=== PATIENT | female | born 1950 | race Caucasian/White ===

== ENCOUNTER 2021-09-08 07:03 | Day surgery (SDC) | payer MEDICARE, MEDICAID ==
[2021-09-06 16:43] LABS: BASOPHILS % (AUTO) 0.7 % (0-1); EOSINOPHILS # (AUTO) 0.2 X10'3 (0-0.9); EOSINOPHILS % (AUTO) 2.8 % (0-6); LYMPHOCYTES # (AUTO) 2.2 X10'3 (1.1-4.8); MEAN CORPUSCULAR HGB CONC 32.2 g/dL (33.0-36.5); MEAN CORPUSCULAR VOLUME 80.7 FL (78-98); MEAN PLATELET VOLUME 6.6 FL (7.4-10.4); MONOCYTES # (AUTO) 0.6 X10'3 (0-0.9); MONOCYTES % (AUTO) 8.7 % (2-12); NEUTROPHILS # (AUTO) 3.4 X10'3 (1.8-7.7); NEUTROPHILS % (AUTO) 52.8 % (42-75); PRE OP HEMATOCRIT 32.2 % (35.0-45.0); PRE OP PLATELET COUNT 297 X10'3 (140-440); RED BLOOD COUNT 3.98 X10'6 (4.20-5.60); RED CELL DISTRIBUTION WIDTH 18.6 % (11.5-14.5)
[2021-09-06 16:51] LABS: PRE OP HEMOGLOBIN 10.4 g/dL (12.0-16.0)
[2021-09-06 16:55] LABS: ALBUMIN 3.9 G/DL (3.4-5.0); ALBUMIN/GLOBULIN RATIO 1.1 (1.1-1.5); ALKALINE PHOSPHATASE 135 IU/L (46-116); BLOOD UREA NITROGEN 23 MG/DL (7-18); CALCIUM 8.9 MG/DL (8.5-10.1); CHLORIDE 104 MMOL/L (99-107); CREATININE 1.44 MG/DL (0.40-0.90); PRE OP ALT 30 U/L (30-65); PRE OP ANION GAP 8 (8-16); PRE OP AST 35 U/L (10-37); PRE OP BILIRUB, TOTAL 0.4 MG/DL (0.0-1.0); PRE OP GLUCOSE 92 MG/DL (70-104); PRE OP POTASSIUM 3.9 MMOL/L (3.4-5.1); PRE OP SODIUM 142 MMOL/L (135-145); TOTAL CARBON DIOXIDE 29.8 MMOL/L (24-32); TOTAL PROTEIN 7.5 G/DL (6.4-8.2); eGFR 36 ML/MIN
[2021-09-06 18:08] LABS: ANISOCYTOSIS 2+; HYPOCHROMASIA 1+; PLATELET ESTIMATE NORMAL
[2021-09-08] VITALS (7 sets, daily range): BP systolic 128–143; BP diastolic 69–76
[~2021-09-08] VITALS: Ht 162.6 cm; Wt 55.4 kg
[~2021-09-08 07:03] MED LIST: AMLO5TAB16 PO; ASPI-1265 PO; ATOR40TA72 PO; BUPR8TAB4 SL; CHOL100010 PO; DET2LAC PO; DOCUMENT DATE & TIME OF BETA-BLOCKER PO ONE; LEVO75TA7 PO; LOSA100T57 PO; MELA10TA2 PO; METO25TA6 PO; cefazolin/dext.iso 2gm/50ml IV ONE; famotidine 20mg tablet PO ONE; ringers solution, lacted 1,000 ML IV SCH
[2021-09-08] MEDS ORDERED: LIDOcaine 1% 30ml preserv. free vial ONE (09:14)
[2021-09-08] MEDS ORDERED: BUPIVAcaine 0.5% inj/PF 30 ML ONE (10:43)
[2021-09-08] MEDS ORDERED: fentaNYL/PF 50MCG/1 ML 2ML syringe ONE (10:48)
[2021-09-08] MEDS ORDERED: midazolam 1 mg/ML 2ml injection ONE (10:49)
[2021-09-08] MEDS ORDERED: BUPIVAcaine 0.5% inj/PF 30 ml vial IJ ONE (11:10)
--- NOTE | 2021-09-08 11:50 | NUR ---
Received from OR via STRETCHER , accompanied by Anesthesiologist DR SHARIF and report given by Anesthesiologist. PT IS SITTING UP TALKING, ALERT, DENIES PAIN, FINGERS ARE PINK WITH GOOD CAP REFILL. SMALL AMOUNT OF BLOODY DRAINAGE ON PINKY DRESSING. PT GIVEN SOMETHING TO DRINK, TOLERATED IT WELL.
--- NOTE | 2021-09-08 12:40 | NUR ---
PT MEETS DISCHARGE CRITERIA, ASSISTED WITH GETTING DRESSED, IV D/BHANU WITH NO SIGNS OF HEMATOMA. DISCHARGE INSTRUCTIONS GIVEN TO PATIENT. SHE VERBALIZED UNDERSTANDING OF HER INSTRUCTIONS. TAKEN VIA WHEELCHAIR TO THE LOBBY WHERE HER RIDE WAS THERE TO TAKE HER HOME
== END 2021-09-08 12:40 | disposition home or self-care (01) ==
LOC: PAS 07:03
PROVIDERS: ATTEND Orthopaedic Surgery Hand Surgery
DX: M67.441 Ganglion, right hand (principal); I10 Essential (primary) hypertension; M19.90 Unspecified osteoarthritis, unspecified site; G89.29 Other chronic pain; Z87.891 Personal history of nicotine dependence; Z85.850 Personal history of malignant neoplasm of thyroid; Z85.528 Personal history of other malignant neoplasm of kidney; Z72.89 Other problems related to lifestyle; Z91.040 Latex allergy status; Z91.09 Other allergy status, other than to drugs and biological substances; Z79.899 Other long term (current) drug therapy; Z86.73 Personal history of transient ischemic attack (TIA), and cerebral infarction without residual deficits; Z98.890 Other specified postprocedural states; Z90.5 Acquired absence of kidney; Z79.82 Long term (current) use of aspirin; Z20.822 Contact with and (suspected) exposure to COVID-19
CPT/HCPCS: 26160; 36415; 80053; 82948; 85025; 87635; C9803; J2250; J3010; J3490; J7030; J7120; S0020; Z7506; Z7512; 85008; A4215; A4618; A7000

== ENCOUNTER 2023-02-04 09:07 | Emergency (ER) | payer MEDICARE, MEDICAID ==
[~2023-02-04] VITALS: Ht 162.6 cm; Wt 39.6 kg
[~2023-02-04 09:07] MED LIST changes: -DOCUMENT DATE & TIME OF BETA-BLOCKER PO ONE; -LOSA100T57 PO; +LOSA100T58 PO; -cefazolin/dext.iso 2gm/50ml IV ONE; -famotidine 20mg tablet PO ONE; -ringers solution, lacted 1,000 ML IV SCH
[2023-02-04 12:41] VITALS: BP 129/74; PULSE 85; RESP 18; TEMP 97.6; O2SAT 97
[2023-02-04] MEDS ORDERED: oxyCODONE IR 5mg (immed. release) tablet PO ONE (14:55)
[2023-02-04] MEDS ORDERED: ketorolac trometh. 30mg/ml inj. IM ONE (14:55)
[2023-02-04] MEDS ORDERED: ondansetron 4mg rapidly disintigrating tab PO ONE (14:55)
[2023-02-04 17:25] LABS: BASOPHILS % (AUTO) 0.4 % (0-1); EOSINOPHILS # (AUTO) 0.1 X10'3 (0-0.9); EOSINOPHILS % (AUTO) 1.6 % (0-6); HEMATOCRIT 33.7 % (35.0-45.0); HEMOGLOBIN 11.2 g/dl (12.0-16.0); LYMPHOCYTES # (AUTO) 1.8 X10'3 (1.1-4.8); LYMPHOCYTES % (AUTO) 23.1 % (21-51); MEAN CORPUSCULAR HEMOGLOBIN 30.8 PG (27.0-31.0); MEAN CORPUSCULAR HGB CONC 33.2 g/dL (33.0-36.5); MEAN CORPUSCULAR VOLUME 92.8 FL (78-98); MEAN PLATELET VOLUME 6.4 FL (7.4-10.4); MONOCYTES # (AUTO) 0.6 X10'3 (0-0.9); MONOCYTES % (AUTO) 7.9 % (2-12); NEUTROPHILS # (AUTO) 5.1 X10'3 (1.8-7.7); PLATELET COUNT 322 X10'3 (140-440); RED BLOOD COUNT 3.63 X10'6 (4.20-5.60); RED CELL DISTRIBUTION WIDTH 14.6 % (11.5-14.5); WHITE BLOOD COUNT 7.6 X10'3 (4.5-11.0)
[2023-02-04 17:40] LABS: ALANINE AMINOTRANSFERASE 22 U/L (12-78); ALBUMIN 3.2 G/DL (3.4-5.0); ALBUMIN/GLOBULIN RATIO 0.7 (1.1-1.5); ALKALINE PHOSPHATASE 92 IU/L (46-116); ANION GAP 10 (8-16); ASPARTATE AMINO TRANSFERASE 27 U/L (10-37); BILIRUBIN,TOTAL 0.4 MG/DL (0.1-1.0); BLOOD UREA NITROGEN 13 MG/DL (7-18); BUN/CREATININE RATIO 11.5 (10.0-20.0); C-REACTIVE PROTEIN 13.57 MG/DL (0.0-0.5); CALCIUM 9.2 MG/DL (8.5-10.1); CHLORIDE 96 MMOL/L (99-107); CREATININE 1.13 MG/DL (0.40-0.90); GLUCOSE 96 MG/DL (70-104); MAGNESIUM 1.9 MG/DL (1.5-2.4); POTASSIUM 3.4 MMOL/L (3.5-5.1); SODIUM 133 MMOL/L (135-145); TOTAL CARBON DIOXIDE 26.7 MMOL/L (24-32); TOTAL PROTEIN 7.6 G/DL (6.4-8.2); eCRCL 28 ML/MIN; eGFR 47 ML/MIN
[2023-02-04] MEDS ORDERED: CEPH250T PO (18:33)
[2023-02-04] MEDS ORDERED: cephalexin 250mg capsule PO ONE (18:35)
== END 2023-02-04 18:50 | disposition home or self-care (01) ==
LOC: ER 09:07
DX: R22.32 Localized swelling, mass and lump, left upper limb (principal); M79.602 Pain in left arm; E78.00 Pure hypercholesterolemia, unspecified; I10 Essential (primary) hypertension; E03.9 Hypothyroidism, unspecified; Z79.899 Other long term (current) drug therapy; Z88.8 Allergy status to other drugs, medicaments and biological substances
CPT/HCPCS: 36415; 80053; 83605; 83735; 84145; 85025; 85651; 86140; 87040; 93005; 93971; 96372; 99285; J1885

== ENCOUNTER 2023-12-23 06:02 | Day surgery (SDC) | payer MEDICARE, MEDICAID ==
[2023-12-19 14:40] LABS: BASOPHILS # (AUTO) 0.1 X10'3 (0-0.2); BASOPHILS % (AUTO) 0.8 % (0-1); EOSINOPHILS # (AUTO) 0.1 X10'3 (0-0.9); EOSINOPHILS % (AUTO) 1.1 % (0-6); LYMPHOCYTES # (AUTO) 2.3 X10'3 (1.1-4.8); LYMPHOCYTES % (AUTO) 33.5 % (21-51); MEAN CORPUSCULAR HEMOGLOBIN 31.9 PG (27.0-31.0); MEAN CORPUSCULAR HGB CONC 33.6 g/dL (33.0-36.5); MEAN CORPUSCULAR VOLUME 95.2 FL (78-98); MEAN PLATELET VOLUME 6.6 FL (7.4-10.4); MONOCYTES # (AUTO) 0.5 X10'3 (0-0.9); MONOCYTES % (AUTO) 7.1 % (2-12); NEUTROPHILS % (AUTO) 57.5 % (42-75); PRE OP HEMATOCRIT 35.7 % (35.0-45.0); PRE OP PLATELET COUNT 254 X10'3 (140-440); RED BLOOD COUNT 3.75 X10'6 (4.20-5.60); RED CELL DISTRIBUTION WIDTH 14.2 % (11.5-14.5)
[2023-12-19 14:46] LABS: ALBUMIN 3.2 G/DL (3.4-5.0); ALBUMIN/GLOBULIN RATIO 0.9 (1.1-1.5); ALKALINE PHOSPHATASE 77 IU/L (46-116); BLOOD UREA NITROGEN 17 MG/DL (7-18); BUN/CREATININE RATIO 14.5 (10.0-20.0); CALCIUM 8.7 MG/DL (8.5-10.1); CHLORIDE 104 MMOL/L (99-107); CREATININE 1.17 MG/DL (0.40-0.90); PRE OP ALT 19 U/L (30-65); PRE OP ANION GAP 3 (8-16); PRE OP AST 18 U/L (10-37); PRE OP BILIRUB, TOTAL 0.3 MG/DL (0.0-1.0); PRE OP GLUCOSE 94 MG/DL (70-104); PRE OP SODIUM 138 MMOL/L (135-145); TOTAL CARBON DIOXIDE 30.7 MMOL/L (24-32); TOTAL PROTEIN 6.6 G/DL (6.4-8.2); eGFR 45 ML/MIN
[2023-12-22] MEDS: DOCUMENT DATE & TIME OF BETA-BLOCKER PO ONE (08:00)
[2023-12-23] VITALS (8 sets, daily range): BP systolic 109–142; BP diastolic 57–76; PULSE 72–101; RESP 10–21; TEMP 98.3; O2SAT 97–100
[~2023-12-23] VITALS: Ht 162.6 cm; Wt 42.9 kg
[2023-12-23] MEDS: cefazolin 2gm/D5W 100mL 100 ML IV ONE (05:30)
[~2023-12-23 06:02] MED LIST changes: +APIX5TAB3 PO; -ASPI-1265 PO; -BUPR8TAB4 SL; -CHOL100010 PO; -MELA10TA2 PO; +MORP-92; +OXYC1TAB17 PO; +PREG25CA19 PO
[2023-12-23] MEDS: ringers solution, lacted 1,000 ML IV SCH (06:38)
[2023-12-23] MEDS: famotidine 20mg tablet PO ONE (06:38)
[2023-12-23] MEDS ORDERED: LIDOcaine 2% (20mg/ml) 5ml vial ONE (07:28)
[2023-12-23] MEDS ORDERED: fentaNYL/PF 50MCG/1 ML 2ML syringe ONE (08:18)
[2023-12-23] MEDS ORDERED: sevoflurane 250ml liquid IH ONE (08:50)
[2023-12-23] MEDS ORDERED: labetalol 20mg/4ml (5mg/ml) syringe IV PRN (09:55)
[2023-12-23] MEDS ORDERED: proCHLORperazine 10 MG/2 ml inj IV PRN (09:55)
[2023-12-23] MEDS ORDERED: morphine 2 MG/ML inj. syringe IV PRN (09:55)
[2023-12-23] MEDS ORDERED: enalaprilat dihydrate 2.5mg/2ml vial IV PRN (09:55)
[2023-12-23] MEDS ORDERED: meperidine/PF 25mg/ml syringe IV PRN ×3 (09:55)
[2023-12-23] MEDS ORDERED: ringers solution, lacted 1,000 ML IV SCH (09:55)
[2023-12-23] MEDS ORDERED: ondansetron/PF 4mg/2ml inj IV PRN (09:55)
[2023-12-23] MEDS: HYDROmorphone inj. 0.5 MG/0.5 ML DISP.SYRIN IV ONE (10:12)
[2023-12-23] MEDS: morphine 4 MG/ML inj SYRINge IV PRN (10:28)
[2023-12-23] MEDS ORDERED: BUPIVAcaine/PF 2.5mg/ml (0.25%) 10ml vial ONE (10:51)
[2023-12-23] MEDS: BUPIVAcaine/PF 2.5mg/ml (0.25%) 10ml vial ONE (12:16)
== END 2023-12-23 10:50 | disposition home or self-care (01) ==
LOC: PAS 06:02
PROVIDERS: ATTEND Orthopaedic Surgery Hand Surgery
DX: M19.041 Primary osteoarthritis, right hand (principal); I10 Essential (primary) hypertension; E78.00 Pure hypercholesterolemia, unspecified; Z79.01 Long term (current) use of anticoagulants; Z79.82 Long term (current) use of aspirin; Z79.890 Hormone replacement therapy; Z79.899 Other long term (current) drug therapy; Z96.619 Presence of unspecified artificial shoulder joint; Z98.890 Other specified postprocedural states; Z91.040 Latex allergy status; Z88.8 Allergy status to other drugs, medicaments and biological substances; Z82.3 Family history of stroke
CPT/HCPCS: 26860; 26861; 36415; 80053; 82948; 85025; A4215; A4618; A6223; A7000; C1713; C1769; J0690; J1100; J1170; J2001; J2270; J2405; J2704; J3010; J3490; J7030; J7120; Z7506; Z7512; Z7610

== ENCOUNTER 2024-09-02 12:53 | Emergency (ER) | payer MEDICARE, MEDICAID ==
[~2024-09-02] VITALS: Ht 162.6 cm; Wt 65.9 kg
[2024-09-02 13:19] VITALS: BP 164/80; PULSE 80; TEMP 97; O2SAT 96
[2024-09-02 13:52] LABS: BASOPHILS # (AUTO) 0.1 X10'3 (0-0.2); BASOPHILS % (AUTO) 1.2 % (0-1); EOSINOPHILS % (AUTO) 0.6 % (0-6); HEMATOCRIT 36.5 % (35.0-45.0); LYMPHOCYTES # (AUTO) 1.5 X10'3 (1.1-4.8); LYMPHOCYTES % (AUTO) 19.3 % (21-51); MEAN CORPUSCULAR HEMOGLOBIN 29.3 PG (27.0-31.0); MEAN CORPUSCULAR VOLUME 88.8 FL (78-98); MEAN PLATELET VOLUME 7.1 FL (7.4-10.4); MONOCYTES # (AUTO) 0.4 X10'3 (0-0.9); MONOCYTES % (AUTO) 4.6 % (2-12); NEUTROPHILS # (AUTO) 5.9 X10'3 (1.8-7.7); NEUTROPHILS % (AUTO) 74.3 % (42-75); PLATELET COUNT 267 X10'3 (140-440); RED BLOOD COUNT 4.11 X10'6 (4.20-5.60); RED CELL DISTRIBUTION WIDTH 15.8 % (11.5-14.5); WHITE BLOOD COUNT 7.9 X10'3 (4.5-11.0)
[2024-09-02 13:59] LABS: BILIRUBIN,URINE NEGATIVE (Neg); CLARITY,URINE CLEAR (Clear); COLOR,URINE YELLOW (Yellow); GLUCOSE, URINE NEGATIVE (Neg); KETONES,URINE NEGATIVE (Neg); LEUKOCYTE ESTERASE ,URINE NEGATIVE (Neg); NITRITES, URINE NEGATIVE (Neg); OCCULT BLOOD,URINE NEGATIVE (Neg); PROTEIN,URINE NEGATIVE (Neg); UROBILINOGEN,URINE 0.2 E.U/dL (0.2-1.0)
[2024-09-02 14:05] LABS: UA COLLECTION TYPE CLN CATCH MIDSTREAM
[2024-09-02 14:10] VITALS: RESP 16
[2024-09-02 14:10] LABS: ALBUMIN 3.7 G/DL (3.4-5.0); ANION GAP 7 (8-16); BLOOD UREA NITROGEN 18 MG/DL (7-18); BUN/CREATININE RATIO 16.2 (10.0-20.0); CHLORIDE 102 MMOL/L (99-107); CREATININE 1.11 MG/DL (0.40-0.90); ETHANOL < 10 MG/DL (<10); GLUCOSE 96 MG/DL (70-104); POTASSIUM 4.1 MMOL/L (3.5-5.1); SODIUM 136 MMOL/L (135-145); THYROID STIMULATING HORMONE 8.65 ulU/ml (0.34-4.50); TOTAL CARBON DIOXIDE 27.5 MMOL/L (24-32); eCRCL 39 ML/MIN; eGFR 48 ML/MIN
[2024-09-02 14:53] LABS: URINE AMPHETAMINE SCREEN NEGATIVE (Neg); URINE BARBITUATE SCREEN NEGATIVE (Neg); URINE BENZODIAZEPINES SCREEN NEGATIVE (Neg); URINE CANNABINOID SCREEN POSITIVE (Neg); URINE COCAINE SCREEN NEGATIVE (Neg); URINE METHADONE SCREEN NEGATIVE (Neg); URINE OPIATE SCREEN POSITIVE (Neg); URINE PHENCYCLIDINE SCREEN NEGATIVE (Neg)
[2024-09-02 16:35] LABS: FREE T4 (FREE THYROXINE) 0.92 NG/DL (0.73-1.40)
[2024-09-02] MEDS: OXYcodone (OXYCONTIN) Ext Release 15 MG TAB.SR.12H PO SCH (17:17)
== END 2024-09-02 18:46 | disposition home or self-care (01) ==
LOC: ER 12:54
DX: R45.851 Suicidal ideations (principal); E78.00 Pure hypercholesterolemia, unspecified; I10 Essential (primary) hypertension; Z86.73 Personal history of transient ischemic attack (TIA), and cerebral infarction without residual deficits; Z90.710 Acquired absence of both cervix and uterus; Z20.822 Contact with and (suspected) exposure to COVID-19
CPT/HCPCS: 36415; 80048; 80305; 81003; 84439; 84443; 85025; 87811; 99285; G0480; 80320; 99283

== ENCOUNTER 2025-04-28 15:18 | Outpatient (CLI) | payer MEDICARE, MEDICAID ==
[~2025-04-28 15:18] MED LIST changes: -MORP-92; +MORP15TA5
[2025-04-28 16:48] VITALS: PULSE 73; RESP 14; O2SAT 98
== END 2025-04-28 23:59 | disposition home or self-care (01) ==
LOC: RT 15:18
DX: R06.02 Shortness of breath (principal)
CPT/HCPCS: 94010; 94760